=== PATIENT | male | born 1955 | race Two or more races ===

== ENCOUNTER 2017-09-10 05:30 | Inpatient (IN) | payer OTHER ==
[~2017-09-10] VITALS: Ht 182.9 cm; Wt 93.0 kg
[~2017-09-10 05:30] MED LIST: LISI-603 PO
[2017-09-10] MEDS ORDERED: BACITRACIN 50000 UNITS/VIAL ONE (07:58)
[2017-09-10] MEDS ORDERED: TRANEXAMIC ACID 3,000 MG in SODIUM CHLORIDE IRRIG SOLUTION 70 ML IR ONE (08:00)
[2017-09-10] MEDS ORDERED: HYDROMORPHONE INJ 2 MG/ML DISP.SYRIN ONE (10:06)
[2017-09-10] MEDS ORDERED: MORPHINE SULFATE INJ 2 MG/ML DISP.SYRIN ONE ×2 (10:20→10:23)
[2017-09-10] MEDS ORDERED: HYDROMORPHONE INJ 0.5 MG/0.5 ML SYRINGE IV PRN (11:00)
[2017-09-10] MEDS ORDERED: oxyCODONE/APAP (5/325 MG) 1 UDTAB TABLET PO PRN ×2 (11:00)
--- NOTE | 2017-09-10 11:30 | NUR ---
MS ELEMENTARY ASSISTANT TEACHER NOTE PATIENT RECEIVED FROM OR S/P REVISION OF LEFT TOTAL HIP ARTHROPLASTY BY DR. MOREL. NO SOB OR DISTRESS NOTED. CALL LIGHT WITHIN REACH AND SAFETY MEASURES IMPLEMENTED. LEFT HIP SURGICAL INCISION PLACE WITH DRESSING INTACT. IV INTACT AND PATENT ON LEFT HAND NO REDNESS OR SWELLING NOTED. ABLE TO COMMUNICATE NEEDS. ORDERS FROM DR. MOREL NOTED AND CARRIED OUT. NOTIFIED PRIMARY MD FOR ADMISSION, PENDING ORDERS AT THIS TIME. WILL CONTINUE TO MONITOR
[2017-09-10 11:45] VITALS: BP 116/74
--- NOTE | 2017-09-10 12:13 | NUR ---
RN NOTES: NONLABORED BREATHING NOTED. BP WNL. DILAUDID ADMINISTERED FOR SEVERE HIP PAIN PER ORDERS. RN REX NOTIFIED
--- NOTE | 2017-09-10 13:00 | NUR ---
MS RN NOTE DILAUDID GIVEN EARLIER NOT EFFECTIVE, MADE MD AWARE OF PAIN MANAGEMENT.
[2017-09-10] MEDS: IV LR 1000 ML 1,000 ML IV PRN (13:27)
--- NOTE | 2017-09-10 13:30 | NUR ---
MS RN NOTE ORDER TO CHANGE DILAUDID 1MG TO 2MG Q2H AND PAIN MANAGEMENT CONSULT WITH DR. BOND. ORDERS NOTED AND CARRIED OUT.
[2017-09-10] MEDS ORDERED: HYDROMORPHONE INJ 0.5 MG/0.5 ML SYRINGE ONE (14:00)
--- NOTE | 2017-09-10 14:00 | NUR ---
MS RN NOTE DILAUDID 2MG GIVEN. PATIENT IN NO DISTRESS, NON-LABORED BREATHING, VITALS STABLE. WILL REASSESS PAIN
--- NOTE | 2017-09-10 14:52 | NUR ---
MS RN NOTE RECEIVED CALL BACK FROM DR. BOND WILL SEE PATIENT FOR PAIN MANAGEMENT CONSULT TODAY
[2017-09-10] MEDS ORDERED: HYDROMORPHONE INJ 2 MG/ML DISP.SYRIN IV PRN (15:00)
[2017-09-10 16:01] VITALS: BP 103/68
[2017-09-10] MEDS ORDERED: CLONIDINE HCL 0.1 MG TABLET PO PRN (16:30)
[2017-09-10] MEDS ORDERED: MENTHOL/CETYLPYRD (CEPACOL) 1 LOZ LOZENGE PO PRN (16:30)
[2017-09-10] MEDS ORDERED: diphenhydrAMINE HCL 25 MG CAPSULE PO PRN (16:30)
[2017-09-10] MEDS ORDERED: MAG HYDROX/AL HYDROX/SIMETH 30 ML UDC PO PRN (16:30)
[2017-09-10] MEDS: HYDROMORPHONE INJ 0.5 MG/0.5 ML SYRINGE IV PRN (16:50)
[2017-09-10] MEDS ORDERED: DRONABINOL (2.5 MG) 2.5 MG CAPSULE PO ONE (16:50)
[2017-09-10] MEDS: CEFAZOLIN SODIUM 1 GM in IV SODIUM CHLORIDE 0.9% 50 ML IV SCH (16:50)
[2017-09-10] MEDS: DRONABINOL (2.5 MG) 2.5 MG CAPSULE PO SCH (17:00)
[2017-09-10] MEDS: DOCUSATE SODIUM 100 MG CAPSULE PO SCH (17:00)
--- NOTE | 2017-09-10 17:00 | NUR ---
MS RN NOTE DOUBLE DOSE OF MARINOL NOTED. ONE TIME ORDER GIVEN
--- NOTE | 2017-09-10 17:30 | NUR ---
MS RN NOTE SCHOOL TRANSPORTATION SUPERVISOR PUMP STARTED AND WITNESSED BY ANOTHER RN, ALFREDO. PATIENT IN STABLE CONDITION, BREATHING NON-LABORED, VITALS WNL. WILL CONTINUE TO MONITOR
[2017-09-10] MEDS: MORPHINE SULFATE 30 MG in IV NS 0.9% 28 ML, PCA TOTAL VOLUME 1 BAG IV PRN ×3 (17:31)
--- NOTE | 2017-09-10 18:26 | NUR ---
MS RN CLOSING NOTE PATIENT RESTING COMFORTABLY AT THIS TIME. NO PAIN NOTED, MASSEUR/MASSEUSE PUSH AT BEDSIDE-EDUCATED PATIENT ON MASSEUR/MASSEUSE PUMP AND DOSAGE, PATIENT ABLE TO RETURN VERBALIZATION OF PUMP. IV INTACT AND PATENT NO REDNESS OR SWELLING NOTED, IV FLUIDS RUNNING AT 100 ML/HR-DISCONTINUE ONCE PATIENT HAS GOOD PO INTAKE. ALL DUE MEDICATIONS GIVEN ORDERED. ALL NURSING CARE NEEDS ATTENDED TO NEEDED. PATIENT REFUSED PHYSICAL THERAPY TODAY, WILL RESUME TOMORROW. ABDUCTOR PILLOW IN PLACE AT THIS TIME. WILL ENDORSE TO YARD ATTENDANT NURSE FOR [place]
--- NOTE | 2017-09-10 19:49 | NUR ---
MS RN OPENING NOTE Patient s/p left total hip arthroplasty was seen lying in bed AAOx4, breathing on RA with no SOB, and no signs of acute distress. Incisions on left hip are covered with a dressing, which is clean, dry, and intact; surrounding skin has no redness or swelling. Peripheral IV in left hand (18g) is running LR at 100ml/hr, and patient has morphine SCIENTIST PROPAGATOR pump. Usage of the SCIENTIST PROPAGATOR pump was reviewed with the patient and the patient was able to verbalize his understanding through discussion of its use. Abductor pillow is in place. Bed is in low/locked position, two side rails up, and call garza within reach. Will continue to monitor.
[2017-09-10 20:00] VITALS: BP_SYST 109; BP_SYST 128; BP_DIAS 70; BP_DIAS 72
[2017-09-10] MEDS: PANTOPRAZOLE 40 MG TABLET.DR PO SCH (21:21)
[2017-09-10] MEDS: ONDANSETRON HCL/PF 4 MG/2 ML VIAL IV PRN (22:03)
--- NOTE | 2017-09-10 22:16 | NUR ---
MS RN NOTE - Zofran Patient requested medication for nausea. No episodes of vomiting. Patient reports often having nausea side effect from morphine. Administered 4 mg of Zofran as ordered (prn). Will continue to monitor.
[2017-09-11] MEDS: CEFAZOLIN SODIUM 1 GM in IV SODIUM CHLORIDE 0.9% 50 ML IV SCH (00:03)
[2017-09-11] MEDS: IV LR 1000 ML 1,000 ML IV PRN (00:04)
[2017-09-11] MEDS: DRONABINOL (2.5 MG) 2.5 MG CAPSULE PO SCH ×3 (00:29→17:39)
[2017-09-11] MEDS: ONDANSETRON HCL/PF 4 MG/2 ML VIAL IV PRN ×3 (02:29→11:23)
--- NOTE | 2017-09-11 02:30 | NUR ---
MS RN NOTE - Zofran Patient requested Zofran for nausea, side effect from morphine. Zofran 4mg was administered as ordered prn q4h. Will continue to monitor.
[2017-09-11] MEDS ORDERED: KEY,NONCONTROL,TO KEEP IN PYXI 1 EA MC ONE (03:01)
[2017-09-11] MEDS ORDERED: MORPHINE SULFATE INJ 10 MG/ML DISP.SYRIN ONE (03:25)
[2017-09-11] MEDS ORDERED: MORPHINE SULFATE INJ 4 MG/ML DISP.SYRIN ONE (03:30)
[2017-09-11] MEDS: MORPHINE SULFATE 30 MG in IV NS 0.9% 28 ML, PCA TOTAL VOLUME 1 BAG IV PRN ×6 (03:57→11:04)
--- NOTE | 2017-09-11 04:00 | NUR ---
RN NOTES HYDROCHLORIC ACID OPERATOR BAG IS FINISHED, NO NEW HYDROCHLORIC ACID OPERATOR BAG AVAILABLE..TALKED TO THE CHARGE NURSE WELL THE CLOTH TRIMMER HAND THAT NO NEW HYDROCHLORIC ACID OPERATOR BAG AVAILABLE.. MIXED A NEW HYDROCHLORIC ACID OPERATOR BAG MORPHINE 30MG IN NS 50 ML 28ML, WITNESSED BY ANOTHER RN CHASE V/S STABLE, NO SOB. PT IS A/OX4
--- NOTE | 2017-09-11 06:31 | NUR ---
MS RN NOTE - Seen by Dr. Ny Patient was seen by Dr. Ny at bedside this AM. Dr. Ny discontinued Lactated Ringer's IV fluids, and after evaluating the patient, asked that PO oxycodone be administered to the patient as ordered -10mg this AM. Zofran 4mg also given to relieve nausea. Will continue to monitor.
[2017-09-11] MEDS: oxyCODONE IR immediate release 5 MG PO PRN ×2 (06:37→19:50)
--- NOTE | 2017-09-11 06:52 | NUR ---
MS RN CLOSING NOTE Patient was seen in bed this AM AAOx4, breathing on RA with no SOB, and no signs of acute distress. Patient's incision on left hip is covered with a dressing that is clean, dry, and intact. Patient has morphine CORRECTION OFFICER HEAD pump at 1.5mg/push with 12 minute lock-out. Dr. Ny has d/c'd IV fluids (see previous note). Peripheral IV in left hand 18g is patent. Bed is in low/locked position, two side rails up, and call garza within reach. All prescribed orders and patient needs carried out. Will endorse patient care to day shift nurse.
[2017-09-11 08:00] VITALS: BP 111/67
--- NOTE | 2017-09-11 08:00 | NUR ---
MS RN NOTES PATIENT IN BED RESTING, ALERT, ORIENTED X4 ON MOBILE HOME INSTALLER PUMP. PERIPHERAL IV INTACT PATENT. PATIENTS PAIN CONTROLLED. BED IN LOW LOCKED POSITION. CALL LIGHT WITHIN REACH. WILL CONTINUE TO MONITOR.
[2017-09-11] MEDS: DOCUSATE SODIUM 100 MG CAPSULE PO SCH ×2 (08:37→17:00)
[2017-09-11] MEDS: LISINOPRIL (20MG) 20 MG TABLET PO SCH (08:40)
--- NOTE | 2017-09-11 09:31 | NUR ---
MS RN NOTES PATIENT SEEN AMBULATING WITH PT IN THE HALLWAY. TOLERATED PHYSICAL THERAPY WELL WILL CONTINUE TO MONITOR.
--- NOTE | 2017-09-11 12:24 | NUR ---
PATIENT IN BED RESTING, ALERT, ORIENTED X4 ON RADIOLOGICAL TECHNOLOGIST PUMP. PERIPHERAL IV INTACT PATENT. DENYING PAIN AT THE MOMENT. PATIENT EATING LUNCH NOW, NONLABORED BREATHING NOTED ON ROOM AIR. BED IN LOW LOCKED POSITION. CALL LIGHT WITHIN REACH. COVERING FOR SULMA STONE
--- NOTE | 2017-09-11 13:28 | NUR ---
NO CHANGES, REPORT GIVEN TO BERTHA
[2017-09-11] MEDS: HYDROMORPHONE INJ 0.5 MG/0.5 ML SYRINGE IV PRN ×3 (14:45→21:02)
[2017-09-11 16:00] VITALS: BP 122/63
[2017-09-11] MEDS ORDERED: RIVAROXABAN 10 MG TABLET PO SCH (17:00)
--- NOTE | 2017-09-11 18:37 | NUR ---
MS RN NOTES PATIENT IN BED RESTING FRIEND AT BEDSIDE. PATIENT ALERT, ORIENTED X4 NO SOB OR ACUTE DISTRESS NOTED. ALL DUE MEDICATIONS ADMINISTERED. ALL NEEDS MET. PATIENTS PAIN CONTROLLED WITH MEDICATION. PATIENT TOLERATED PHYSICAL THERAPY. WILL ENDORSE CARE TO PM SHIFT.
--- NOTE | 2017-09-11 19:30 | NUR ---
MS RN OPENING NOTE Patient was seen sitting up in bed AAOx4, breathing on RA with no SOB, and no signs of acute distress. Incision site is covered with a dressing that is clean, dry, and intact. Patient is using abductor pillow between his legs. SL IV is located in left hand 18g. is at bedside. Bed is in low/locked position, two side rails up, call garza within reach. Will continue to monitor.
--- NOTE | 2017-09-11 19:55 | NUR ---
MS RN NOTE - Oxy Patient complained of 9/10 left hip pain (s/p left hip surgery) and requested oxycodone. Last oxycodone give around 0630. Administered 10mg oxycodone IR as ordered q3h. Patient is being followed for pain management by Dr. Ny. Will continue to monitor.
[2017-09-11 20:00] VITALS: BP 128/72
[2017-09-11] MEDS: PANTOPRAZOLE 40 MG TABLET.DR PO SCH (21:01)
--- NOTE | 2017-09-11 21:05 | NUR ---
MS RN NOTE - Dilaudid Patient reported 8/10 left hip pain. Being followed by Dr. Ny - alternating Dilaudid and oxycodone okay in substitute of AUTOMAT WATCHER pump. Administered 1.5 mg IV Dilaudid as ordered (prn q3h). Will continue to monitor.
[2017-09-11 22:00] VITALS: BP 128/72
[2017-09-12] MEDS: DRONABINOL (2.5 MG) 2.5 MG CAPSULE PO SCH ×2 (00:11→08:08)
[2017-09-12] MEDS: oxyCODONE IR immediate release 5 MG PO PRN ×3 (00:12→08:08)
--- NOTE | 2017-09-12 00:15 | NUR ---
MS RN NOTE - oxy Oxycodone IR 10 mg administered to patient for left hip pain 12/12 (s/p surgery). Vitals WNL. Will continue to monitor.
--- NOTE | 2017-09-12 04:40 | NUR ---
MS RN NOTE - oxy Oxycodone IR 10 mg given PO to patient for 9/10 left hip pain. Medication is q3h prn. Will continue to monitor.
--- NOTE | 2017-09-12 06:51 | NUR ---
MS RN CLOSING NOTE Patient was seen sitting up in bed AAOx4, breathing on RA with no SOB, and no signs of acute distress. Vital signs WNL this shift. No events overnight. Patient continues PO/IV prn pain meds for pain management s/p left hip surgery. Incisions are covered with dressing that is clean, dry, and intact. Patient ambulating with walker with PT. Incentive spirometer at bedside. Patient is voiding clear yellow urine, output 1200 ml. SL IV in left hand 18g remains patent and flushed. Bed is in low/locked position, two side rails up, call garza within reach. Prescribed orders and patient needs carried out. Will endorse patient care to day shift nurse.
--- NOTE | 2017-09-12 07:10 | NUR ---
RN NOTES PT IS LAYING DOWN IN BED, RESTING COMFORTABLY. PT ON RA, RESPIRATIONS ARE EVEN AND UNLABORED. IV ON L HAND INTACT AND SL. NO SIGNS OF DISTRESS NOTED. SAFETY MEASURES ARE IN PLACE, CALL LIGHT IS IN REACH. WILL CONTINUE TO MONITOR.
[2017-09-12 08:00] VITALS: BP 108/65
[2017-09-12 08:08] VITALS: BP 108/65
[2017-09-12] MEDS: DOCUSATE SODIUM 100 MG CAPSULE PO SCH (08:08)
[2017-09-12] MEDS: LISINOPRIL (20MG) 20 MG TABLET PO SCH (08:08)
[2017-09-12] MEDS: ONDANSETRON HCL/PF 4 MG/2 ML VIAL IV PRN (10:35)
[2017-09-12] MEDS: HYDROMORPHONE INJ 0.5 MG/0.5 ML SYRINGE IV PRN (10:35)
--- NOTE | 2017-09-12 12:10 | NUR ---
RN NOTES PT WAS DISCHARGED HOME IN STABLE CONDITION, ACCOMPANIED BY HIS . IV AND ID BAND WERE REMOVED. PT WAS PROVIDED WITH DISCHARGE PAPERS AND WAS TOLD TO FOLLOW UP WITH DR. MOREL IN 1-2 WEEKS. PT VERBALIZED UNDERSTANDING AND STATED HE ALREADY HAD HIS FOLLOWUP APPOINTMENT SCHEDULED. HIP DRESSING IS INTACT AND CHANGED IN THE AM BY STACY AMARO. DISCHARGE PAPERS WERE SIGNED AND BELONGINGS WERE RETURNED TO PT.
== END 2017-09-12 12:14 | disposition home or self-care (01) | DRG 468 ==
LOC: DS 05:30 → MED 11:39
PROVIDERS: ADMIT Specialist; ATTEND Specialist
DX: T84.84XA Pain due to internal orthopedic prosthetic devices, implants and grafts, initial encounter (principal); Z96.642 Presence of left artificial hip joint; G89.29 Other chronic pain; I10 Essential (primary) hypertension; Y83.9 Surgical procedure, unspecified as the cause of abnormal reaction of the patient, or of later complication, without mention of misadventure at the time of the procedure; Y92.009 Unspecified place in unspecified non-institutional (private) residence as the place of occurrence of the external cause; Z82.49 Family history of ischemic heart disease and other diseases of the circulatory system; Z82.3 Family history of stroke; Z80.3 Family history of malignant neoplasm of breast; M19.90 Unspecified osteoarthritis, unspecified site; Z98.890 Other specified postprocedural states; Z79.899 Other long term (current) drug therapy
CPT/HCPCS: 36415; 86850-TC; 86921-TC; 87081-TC; 88305-TC; 88311-TC; 97116-TC; 97530-TC; 97760-TC; A4216; A4217; A4606; A6209; A6402; J0690; J1100; J1170; J2270; J2405; J2704; J2710; J3490; J7120; Q0167